=== PATIENT | male | born 1965 | race Caucasian/White ===

== ENCOUNTER 2017-01-02 22:39 | Emergency (ER) | payer OTHER ==
[~2017-01-02] VITALS: Ht 137.2 cm; Wt 60.0 kg
[~2017-01-02 22:39] MED LIST: FLUD.1 PO; HYDR20TA PO
[2017-01-02] MEDS ORDERED: HYDR20TA PO (23:02)
[2017-01-02] MEDS ORDERED: FLUD.1 PO (23:02)
[2017-01-02 23:03] VITALS: BP 134/93; PULSE 90; RESP 18; TEMP 98.9; O2SAT 95
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
--- NOTE | 2017-01-02 23:27 | RADRPT ---
EXAM DATE/TIME: 01/02/2017 23:06 [facility] COMPARISON: No previous studies available for comparison. INDICATIONS : Hand pain, no known injury. MEDICAL HISTORY : None. SURGICAL HISTORY : None. ENCOUNTER: Initial ACUITY: 1 day PAIN SCORE: 0/10 LOCATION: Right hand FINDINGS: Two view examination of the right hand demonstrates no dislocation or fracture. Dorsal soft tissue sw elling. The joint spaces are maintained. Bony mineralization is normal. CONCLUSION: Dorsal soft tissue swelling. Felipe Welsh Jr., MD on January 02, 2017 at 23:25 Board Certified Radiologist. This report was verified electronically.
[2017-01-02] MEDS ORDERED: LORazepam 2 MG/ML VIAL IM ONE (23:30)
[2017-01-02 23:47] LABS: BICARBONATE 25.6 MEQ/L (21.0-32.0); POTASSIUM 3.7 MEQ/L (3.5-5.1)
[2017-01-03] MEDS ORDERED: HALOPERIDOL LACTATE 5 MG/ML AMP IM ONE (00:30)
[2017-01-03] MEDS ORDERED: LORazepam 2 MG/ML VIAL IM ONE (02:15)
== END 2017-01-03 06:01 | disposition home or self-care (01) ==
LOC: NEPD 22:39
DX: F10.129 Alcohol abuse with intoxication, unspecified (principal); E27.1 Primary adrenocortical insufficiency; F20.9 Schizophrenia, unspecified; F41.9 Anxiety disorder, unspecified; I95.9 Hypotension, unspecified; I10 Essential (primary) hypertension; F17.210 Nicotine dependence, cigarettes, uncomplicated; F12.90 Cannabis use, unspecified, uncomplicated; Y90.7 Blood alcohol level of 200-239 mg/100 ml; Z88.0 Allergy status to penicillin
CPT/HCPCS: 73120; 80048; 80307; 96372; 99285; J1630; J2060

== ENCOUNTER 2017-01-10 08:43 | Emergency (ER) | payer SELFPAY ==
[~2017-01-10] VITALS: Ht 167.6 cm; Wt 63.0 kg
[2017-01-10 08:48] VITALS: BP 139/77; PULSE 68; RESP 16; TEMP 98.4; O2SAT 100
[2017-01-10] MEDS ORDERED: TRAM50TA PO (09:28)
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
== END 2017-01-10 09:44 | disposition home or self-care (01) ==
LOC: PHED 08:43
DX: S20.212A Contusion of left front wall of thorax, initial encounter (principal); R01.1 Cardiac murmur, unspecified; F17.210 Nicotine dependence, cigarettes, uncomplicated; W22.09XA Striking against other stationary object, initial encounter; Y93.55 Activity, bike riding; Z88.0 Allergy status to penicillin
CPT/HCPCS: 99283

== ENCOUNTER 2017-12-06 08:05 | Emergency (ER) | payer SELFPAY ==
[~2017-12-06] VITALS: Ht 167.6 cm; Wt 59.0 kg
[~2017-12-06 08:05] MED LIST changes: -FLUD.1 PO; -HYDR20TA PO; +TRAM50TA PO
[2017-12-06 08:08] VITALS: BP 150/100; PULSE 76; RESP 18; TEMP 97.9; O2SAT 100
[2017-12-06 09:41] VITALS: BP 163/93; PULSE 82; RESP 18; O2SAT 100
--- NOTE | 2017-12-06 09:45 | RADRPT ---
EXAM DATE/TIME: 12/06/2017 08:24 [facility] COMPARISON: No previous studies available for comparison. INDICATIONS : Left rib pain post fall today. MEDICAL HISTORY : Hypertension. Atchison's disease. heart murmur. SURGICAL HISTORY : Splenectomy. Right lower rib removed due to dysfunctional kidney. ENCOUNTER: Initial ACUITY: 1 day PAIN SCORE: 10/10 LOCATION: Left lateral ribs FINDINGS: Multiple views of the left ribs were performed. There is no evidence of displaced fracture. There is an old healed fracture involving the lateral aspect of the left ninth rib. No destructive lesions or areas of periosteal thickening are seen. Expiratory view of the chest is negative for pneumothorax. The mediastinal structures are midline. Mild compression deformity is noted involving T11. CONCLUSION: 1. No acute rib fracture or dislocation. 2. Mild compression deformity involving T11 of indeterminate age. Jesus Franks MD on December 06, 2017 at 9:40 Board Certified Radiologist. This report was verified electronically.
--- NOTE | 2017-12-06 09:53 | RADRPT ---
EXAM DATE/TIME: 12/06/2017 08:24 [facility] COMPARISON: No previous studies available for comparison. INDICATIONS : Right femur/groin pain post fall. MEDICAL HISTORY : Hypertension. Heart murmur. SURGICAL HISTORY : Splenectomy. Right lower rib removed due to dysfunctional kidney. ENCOUNTER: Initial ACUITY: 1 day PAIN SCORE: 10/10 LOCATION: Right femur FINDINGS: Two view examination of the right femur demonstrates no evidence of fracture or dislocation. Bony mi neralization is normal. The soft tissue structures are intact. CONCLUSION: No acute disease. Jesus Franks MD on December 06, 2017 at 9:43 Board Certified Radiologist. This report was verified electronically.
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
[2017-12-06] MEDS ORDERED: HYDR-3288 PO (10:10)
[2017-12-06] MEDS ORDERED: ACETAMINOPHEN/HYDROcodone 325 MG/5 MG TAB PO ONE (10:15)
== END 2017-12-06 10:45 | disposition home or self-care (01) ==
LOC: PHED 08:05
DX: T14.8XXA Other injury of unspecified body region, initial encounter (principal); R07.9 Chest pain, unspecified; M79.604 Pain in right leg; S80.812A Abrasion, left lower leg, initial encounter; S80.811A Abrasion, right lower leg, initial encounter; W18.39XA Other fall on same level, initial encounter; E27.1 Primary adrenocortical insufficiency; I10 Essential (primary) hypertension; F17.200 Nicotine dependence, unspecified, uncomplicated
CPT/HCPCS: 71101; 73552; 99284; E0113

== ENCOUNTER 2018-01-31 07:54 | Emergency (ER) | payer SELFPAY ==
[~2018-01-31] VITALS: Ht 170.2 cm; Wt 56.0 kg
[~2018-01-31 07:54] MED LIST changes: +HYDR-3288 PO; -TRAM50TA PO
[2018-01-31 07:57] VITALS: BP 129/82; PULSE 81; RESP 16; TEMP 98.4; O2SAT 98
[2018-01-31] MEDS ORDERED: HYDR10TA65 PO (08:11)
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
--- NOTE | 2018-01-31 09:01 | RADRPT ---
EXAM DATE: 01/31/2018 8:37 AM EDT AGE/SEX: 52 years / Male INDICATIONS: Patient states he has a splinter of wood on the plantar surface of foot near the distal end of the 5th metatarsal x 3 days & now seems to be infected. CLINICAL DATA: This is the patient's initial encounter. Patient reports that signs and symptoms have been present for 3 days and indicates a pain score of 6/10. MEDICAL/SURGICAL HISTORY: . Hypotension. Heart murmur. Bladen's disease. Smoker. Splenectomy. ORIF right leg. Renal, rib, skull surgery. COMPARISON: No prior exams available for comparison. FINDINGS: Three views of the left foot demonstrate no fracture or dislocation. Mineralization is within normal limits. The Lisfranc joint appears intact. No radiopaque foreign body is identified. There is mild so ft tissue swelling of the fifth digit and adjacent to the fifth metatarsophalangeal joint. CONCLUSION: Soft tissue swelling of the third digit and adjacent to the fifth MTP joint. No fracture is identifie d and no radiopaque foreign body is seen. Please note that wood foreign bodies are often not visualiz ed with x-ray imaging but can sometimes be seen with ultrasound imaging. Electronically signed by: Jay Barcenas MD 01/31/2018 9:00 AM EDT
[2018-01-31] MEDS ORDERED: LIDOCAINE HCL 1% PF 30 ML VIAL INFIL ONE (09:30)
--- NOTE | 2018-01-31 09:45 | PD ---
Physical Exam Date Seen by Provider: Jan 31, 2018 Time Seen by Provider: 09:43 Data Data Last Documented VS Vital Signs Date Time Temp Pulse Resp B/P (MAP) Pulse Ox O2 Delivery O2 Flow Rate FiO2 01/31/18 07:57 98.4 81 16 129/82 (98) 98 Orders Orders Foot, Complete ([id number]) (01/31/18 08:15) Lidocaine Pf 1% Inj (Xylocaine-Mpf 1% In (01/31/18 09:30) MDM Medical Record Reviewed: Yes Supervised Visit with PAGE: Yes Narrative Course I was asked by Dr. Jones to perform an incision and drainage and foreign body removal on this patient. Please see his note for further details. Procedures Procedure Narrative Incision and drainage and foreign body removal: The area was prepped and was draped. A subcutaneous wheal of 1% lidocaine with a total number 3 mL was used to anesthetize the area properly. A number 11 scalpel was used to make a 0.5 cm incision across the area of the abscess and foreign body. Tweezers were used to remove a 2 mm long piece of wood. The abscess was drained and irrigated with normal saline. Sterile dressing applied. Kathy Dickerson Jan 31, 2018 09:45
[2018-01-31] MEDS ORDERED: CEPH-460 PO (09:49)
== END 2018-01-31 10:04 | disposition home or self-care (01) ==
LOC: PHED 07:54
DX: S91.342A Puncture wound with foreign body, left foot, initial encounter (principal); W45.8XXA Other foreign body or object entering through skin, initial encounter; W22.8XXA Striking against or struck by other objects, initial encounter; E27.1 Primary adrenocortical insufficiency; F41.9 Anxiety disorder, unspecified; I10 Essential (primary) hypertension; F17.200 Nicotine dependence, unspecified, uncomplicated; F12.90 Cannabis use, unspecified, uncomplicated
CPT/HCPCS: 28190; 73630

== ENCOUNTER 2018-02-03 10:09 | Observation (INO) | payer SELFPAY ==
[~2018-02-03] VITALS: Ht 170.2 cm; Wt 50.9 kg
[2018-02-03] VITALS (8 sets, daily range): BP systolic 153–175; BP diastolic 93–106; PULSE 18–82; RESP 16–20; TEMP 97–99.5; O2SAT 97–100
[~2018-02-03 10:09] MED LIST changes: +CEPH-460 PO; -HYDR-3288 PO; +HYDR10TA65 PO
[2018-02-03] MEDS ORDERED: SODIUM CHLORIDE 0.9% FLUSH 10 ML FLUSH IV FLUSH PRN ×3 (10:30→18:45)
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
[2018-02-03 10:49] LABS: AUTOMATED NEUTROPHIL # 3.4 TH/MM3 (1.8-7.7); BASOPHIL # 0.1 TH/MM3 (0-0.2); EOSINOPHIL # 0.3 TH/MM3 (0-0.4); EOSINOPHIL % 3.9 % (0.0-4.0); HEMATOCRIT 48.4 % (39.0-51.0); HEMOGLOBIN 16.9 GM/DL (13.0-17.0); LYMPH % 32.6 % (9.0-44.0); LYMPHOCYTE # 2.1 TH/MM3 (1.0-4.8); MEAN CELL VOLUME 91.1 FL (80.0-100.0); MEAN CORPUSCULAR HEMOGLOBIN 31.9 PG (27.0-34.0); MEAN PLATELET VOLUME 8.1 FL (7.0-11.0); MONO % 9.5 % (0.0-8.0); MONOCYTE # 0.6 TH/MM3 (0-0.9); PLATELET COUNT 237 TH/MM3 (150-450); RED BLOOD COUNT 5.31 MIL/MM3 (4.50-5.90); RED CELL DISTRIBUTION WIDTH 12.6 % (11.6-17.2); WHITE BLOOD COUNT 6.5 TH/MM3 (4.0-11.0)
[2018-02-03 11:00] LABS: CHLORIDE 96 MEQ/L (98-107); SODIUM (NA) 134 MEQ/L (136-145)
[2018-02-03 11:04] LABS: ALBUMIN 3.9 GM/DL (3.4-5.0); BICARBONATE 26.6 MEQ/L (21.0-32.0); CALCIUM 8.4 MG/DL (8.5-10.1); GLUCOSE,RANDOM 68 MG/DL (74-106)
[2018-02-03 11:05] LABS: BLOOD UREA NITROGEN 22 MG/DL (7-18)
[2018-02-03 11:07] LABS: ALT (GPT) 30 U/L (12-78); AST (GOT) 28 U/L (15-37); CREATININE 0.85 MG/DL (0.60-1.30); GLOMERULAR FILTRATION RATE 95 ML/MIN (>89)
[2018-02-03 11:09] LABS: TOTAL BILIRUBIN ADULT 1.4 MG/DL (0.2-1.0); TOTAL PROTEIN 7.5 GM/DL (6.4-8.2)
[2018-02-03 11:10] LABS: ALKALINE PHOSPHATASE 107 U/L (45-117)
[2018-02-03] MEDS ORDERED: GADODIAMIDE PF 287 MG/ML 10 ML VIAL (for RAD MRI) IV PUSH ONE (11:10)
[2018-02-03 11:11] LABS: INTERNATIONAL NORMALIZED RATIO 1.1 RATIO; PROTHROMBIN TIME - PATIENT 11.6 SEC (9.8-11.6)
[2018-02-03 11:12] LABS: TROPONIN I LESS THAN 0.02 NG/ML (0.02-0.05)
[2018-02-03] MEDS ORDERED: PROCHLORPERAZINE INJ 10 MG/2 ML VIAL IV PUSH ONE (11:15)
--- NOTE | 2018-02-03 11:20 | RADRPT ---
EXAM DATE: 02/03/2018 11:04 AM EDT AGE/SEX: 52 years / Male INDICATIONS: Syncope. Weakness. Cough. CLINICAL DATA: This is the patient's initial encounter. Patient reports that signs and symptoms have been present for 1 day and indicates a pain score of 4/10. MEDICAL/SURGICAL HISTORY: None. None. COMPARISON: [facility], CHEST SINGLE AP, 05/04/2015. . FINDINGS: A single AP view of the chest demonstrates the lungs to be symmetrically aerated without evidence of mass, infiltrate or effusion. The cardiomediastinal contours are unremarkable. Osseous structures a re intact. CONCLUSION: Negative examination. Electronically signed by: Kenyon Gilliland MD 02/03/2018 11:19 AM EDT
--- NOTE | 2018-02-03 11:39 | RADRPT ---
EXAM DATE: 02/03/2018 11:28 AM EDT AGE/SEX: 52 years / Male INDICATIONS: Bilateral temporal headache with blurred vision, sweating, and chills. Altered mental s tatus. Possible drug ingestion. CLINICAL DATA: This is the patient's initial encounter. Patient reports that signs and symptoms have been present for 1 day and indicates a pain score of 5/10. MEDICAL/SURGICAL HISTORY: . Hypotension. None. RADIATION DOSE: 55.13 CTDI (mGy) COMPARISON: No prior exams available for comparison. TECHNIQUE: CT of the head without contrast. Using automated exposure control and adjustment of the mA and/or kV according to patient size, radiation dose was kept as low as reasonably achievable to ob tain optimal diagnostic quality images. FINDINGS: Cerebrum: The ventricles are normal for age. No evidence of midline shift, mass lesion, hemorrhage or acute infarction. No extraaxial fluid collections are seen. Posterior Fossa: The cerebellum and brainstem are intact. The 4th ventricle is midline. The cerebe llopontine angle is unremarkable. Extracranial: The visualized portion of the orbits is intact. Skull: The calvaria is intact. No evidence of skull fracture. CONCLUSION: 1. Negative CT Head non contrast. Electronically signed by: Kenyon Gilliland MD 02/03/2018 11:37 AM EDT
[2018-02-03 11:45] LABS: BLOOD, URINE NEG (NEG); GLUCOSE,URINE NEG (NEG); KETONE, URINE 80 OR GREATER mg/dL (NEG); NITRITE,URINE NEG (NEG); URINE COLOR YELLOW (YELLW/STRAW); URINE LEUKOCYTE ESTERASE NEG (NEG)
[2018-02-03 11:52] LABS: BILIRUBIN, URINE NEG (NEG)
[2018-02-03 12:00] LABS: RBC, URINE 0-3 /hpf (0-3); SQUAMOUS EPITHELIAL CELL URINE 0-5 /hpf (0-5)
[2018-02-03] MEDS ORDERED: POTASSIUM CHLORIDE 10 MEQ CONTROLLED RELEASE TAB PO ONE (12:00)
[2018-02-03 12:13] LABS: MAGNESIUM 2.1 MG/DL (1.5-2.5)
[2018-02-03] MEDS ORDERED: SODIUM CHLOR 0.9% 1000 ML INJ 1,000 ML IV ONE (12:30)
[2018-02-03] MEDS ORDERED: SENNOSIDES 8.6 MG TAB PO PRN (12:45)
[2018-02-03] MEDS ORDERED: BISACODYL 10 MG SUPP RECTAL PRN (12:45)
[2018-02-03] MEDS ORDERED: DEXTROSE 50% IN WATER 50 ML VIAL(D50) IV PUSH PRN (12:45)
[2018-02-03] MEDS ORDERED: NALOXONE HCL 0.4 MG/ML AMP IV PUSH PRN (12:45)
[2018-02-03] MEDS ORDERED: METOCLOPRAMIDE HCL 10 MG/2 ML VIAL IV PUSH PRN (12:45)
[2018-02-03] MEDS ORDERED: LACTULOSE SYRUP 20 GM/30 ML CUP PO PRN (12:45)
[2018-02-03] MEDS ORDERED: MAGNESIUM HYDROXIDE SUSP 30 ML CUP PO PRN (12:45)
[2018-02-03] MEDS ORDERED: GLUCAGON 1 MG/ML VIAL OTHER PRN (12:45)
[2018-02-03] MEDS: HYDROCORTISONE 10 MG TAB PO SCH (14:00)
[2018-02-03] MEDS ORDERED: PILL SPLITTER OTHER PRN (14:00)
--- NOTE | 2018-02-03 14:26 | EKG ---
Date Performed: 02/03/2018 Time Performed: 10:32:41 PTAGE: 52 years EKG: SINUS BRADYCARDIA POSSIBLE LEFT VENTRICULAR HYPERTROPHY ABNORMAL ECG PREVIOUS TRACING : 11/26/2014 05.57 Compared with previous EKG sinus bradycardia is new DOCTOR: César Fitzpatrick Interpretating Date/Time 02/03/2018 14:24:27
--- NOTE | 2018-02-03 14:50 | HHI.HP ---
HPI Service [facility] Primary Care Physician Yandel Asencio DO Admission Diagnosis altered mental status, hypoglycemia Diagnoses: (1) Encephalopathy Diagnosis: Principal (2) Hypoglycemia Diagnosis: Principal (3) Polysubstance abuse Diagnosis: Principal Chief Complaint: Mother brought patient here to get evaluated Travel History International Travel<30 Days: No Contact w/Intl Traveler <30 Da: No Traveled to Known Affected Are: No History of Present Illness Written by Camden Zavaleta, acting as scribe for Dr. Wing on 02/03/18 at 14: 49. 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 Patient laying in bed and most history was taken from mother at bedside. Patient only would indicate "I do not know what happened". According the mother patient was living at a friend's house for approximately 2 months where he has easy access to drugs apparently the roommate is on methadone. Apparently the friend called the patient's mother and had her come pick him up because he was not acting right. This is happened before because of heroin overdose therefore mom got worried and brought her in for eval. Patient does have a history of Pete's in which he is supposed to be on medications. Patient stated "probably not taking medication". There was evidence of diaphoresis, weakness, lethargy, blurred vision, headache 8/10 on a pain scale. No signs of any fever, chills, cough, nausea, vomiting, chest pain. Patient indicates last time he used any cocaine was yesterday. Upon evaluation emergency department course the patient had again a positive drug screen with cocaine and cannabinoids. He had elevated blood pressure and mildly low glucose level. It was recommended by ER physician the patient be observed in the hospital for further evaluation and management. Review of Systems Constitutional: COMPLAINS OF: Diaphoretic episodes, Fatigue Eyes: COMPLAINS OF: Blurred vision Neurologic: COMPLAINS OF: Headache Except as stated in HPI: all other systems reviewed are Neg Past Family Social History Past Medical History Polysubstance abuse [place]'s Past Surgical History Splenectomy Right leg fracture with repair Tonsillectomy Reported Medications Reported Meds & Active Scripts Active Keflex (Cephalexin) 500 Mg Capsule 500 Mg PO QID Reported Hydrocortisone 10 Mg Tab 15 Mg PO DAILY Take with food to decrease GI upset Allergies: Coded Allergies: penicillin G (Unverified Allergy, Intermediate, UNKNOWN, 02/03/18) pt states does not have a allergy to this medication. cris Treadwell 01/31/18 Family History Family history was reviewed and significant for mother still alive with hypertension Social History Patient smokes a pack of cigarettes a day, occasional alcohol, polysubstance abuse with history of heroin use, cocaine use, marijuana use Physical Exam Vital Signs Vital Signs Date Time Temp Pulse Resp B/P (MAP) Pulse Ox O2 Delivery O2 Flow Rate FiO2 02/03/18 14:37 97.0 18 18 175/105 (128) 100 02/03/18 14:28 02/03/18 13:37 54 16 175/93 (120) 100 Room Air 02/03/18 12:31 57 16 159/97 (117) 98 Room Air 02/03/18 10:43 52 173/97 (122) 02/03/18 10:30 97 02/03/18 10:20 82 16 97 02/03/18 10:12 97.8 82 16 160/106 (124) 97 Physical Exam GENERAL: laying in bed, covers up his chin. keeps eyes closed, very thin HEENT: Head is normocephalic. Facial features are symmetric. Eyes: Pupils equal , small and round reactive to light. Extraocular muscles are intact. Conjunctivae were clear. NECK: Supple without any masses. Trachea midline no deviation. No JVD CARDIAC: Regular rhythm, regular rate. S1/S2 are heard. No murmurs. LUNGS: Clear to auscultation bilaterally. No wheeze. No use of accessory muscles on inspiration or expiration. ABDOMEN: Soft, nontender. Nondistended. Bowel sounds heard in all 4 quadrants. Negative rebound, negative guarding EXTREMITIES: No edema, pulses are equal bilaterally. NEUROLOGY: Patient was just laying in bed, appear to be frustrated whenever he was asked questions and at times prefers not to answer. Cranial nerves II through XII grossly intact. moves all extremities. Laboratory Laboratory Tests Test 02/03/18 10:40 02/03/18 11:39 02/03/18 12:35 White Blood Count 6.5 Red Blood Count 5.31 Hemoglobin 16.9 Hematocrit 48.4 Mean Corpuscular Volume 91.1 Mean Corpuscular Hemoglobin 31.9 Mean Corpuscular Hemoglobin Concent 35.0 Red Cell Distribution Width 12.6 Platelet Count 237 Mean Platelet Volume 8.1 Neutrophils (%) (Auto) 52.0 Lymphocytes (%) (Auto) 32.6 Monocytes (%) (Auto) 9.5 Eosinophils (%) (Auto) 3.9 Basophils (%) (Auto) 2.0 Neutrophils # (Auto) 3.4 Lymphocytes # (Auto) 2.1 Monocytes # (Auto) 0.6 Eosinophils # (Auto) 0.3 Basophils # (Auto) 0.1 CBC Comment DIFF FINAL Differential Comment Prothrombin Time 11.6 Prothromb Time International Ratio 1.1 Activated Partial Thromboplast Time 28.3 Blood Urea Nitrogen 22 Creatinine 0.85 Random Glucose 68 Total Protein 7.5 Albumin 3.9 Calcium Level 8.4 Magnesium Level 2.1 Alkaline Phosphatase 107 Aspartate Amino Transf (AST/SGOT) 28 Alanine Aminotransferase (ALT/SGPT) 30 Total Bilirubin 1.4 Sodium Level 134 Potassium Level 3.2 Chloride Level 96 Carbon Dioxide Level 26.6 Anion Gap 11 Estimat Glomerular Filtration Rate 95 Total Creatine Kinase 75 Troponin I LESS THAN 0.02 Thyroid Stimulating Hormone 3rd Gen 0.359 Salicylates Level LESS THAN 1.7 Acetaminophen Level LESS THAN 2.0 Ethyl Alcohol Level LESS THAN 3 Urine Collection Type CLEAN CATCH Urine Color YELLOW Urine Turbidity CLEAR Urine pH 6.0 Urine Specific [place] GREATER/EQUAL 1.030 Urine Protein NEG Urine Glucose (UA) NEG Urine Ketones 80 OR GREATER Urine Occult Blood NEG Urine Nitrite NEG Urine Bilirubin NEG Urine Urobilinogen 1.0 Urine Leukocyte Esterase NEG Urine RBC 0-3 Urine Squamous Epithelial Cells 0-5 Microscopic Urinalysis Comment CULT NOT INDICATED Urine Opiates Screen NEG Urine Barbiturates Screen NEG Urine Amphetamines Screen NEG Urine Benzodiazepines Screen NEG Urine Cocaine Screen POS Urine Cannabinoids Screen POS Result Diagram: 02/03/18 1040 02/03/18 1040 Imaging Last Impressions Head CT 02/03/18 1026 Signed Impressions: CONCLUSION: 1. Negative CT Head non contrast. Chest X-Ray 02/03/18 1026 Signed Impressions: CONCLUSION: Negative examination. Caprini VTE Risk Assessment Caprini VTE Risk Assessment: No/Low Risk (score <= 1) Caprini Risk Assessment Model Point Value = 1 Point Value = 2 Point Value = 3 Point Value = 5 Age 41-60 Minor surgery BMI > 25 kg/m2 Swollen legs Varicose veins or History of unexplained or recurrent spontaneous Oral contraceptives or hormone replacement Sepsis (< 1 month) Serious lung disease, including pneumonia (< 1 month) Abnormal pulmonary function Acute myocardial infarction Congestive heart failure (< 1 month) History of inflammatory bowel disease Medical patient at bed rest Age 61-74 Arthroscopic surgery Major open surgery (> 45 min) Laparoscopic surgery (> 45 min) Malignancy Confined to bed (> 72 hours) Immobilizing plaster cast Central venous access Age >= 75 History of VTE Family history of VTE Factor V Leiden Prothrombin [id number] Lupus anticoagulant Anticardiolipin antibodies Elevated serum homocysteine Heparin-induced thrombocytopenia Other congenital or acquired thrombophilia Stroke (< 1 month) Elective arthroplasty Hip, pelvis, or leg fracture Acute spinal cord injury (< 1 month) Prophylaxis Regimen Total Risk Factor Score Risk Level Prophylaxis Regimen 0-1 Low Early ambulation 2 Moderate Order ONE of the following: *Sequential Compression Device (SCD) *Heparin 5000 units SQ BID 3-4 Higher Order ONE of the following medications: *Heparin 5000 units SQ TID *Enoxaparin/Lovenox 40 mg SQ daily (WT < 150 kg, CrCl > 30 mL/min) *Enoxaparin/Lovenox 30 mg SQ daily (WT < 150 kg, CrCl > 10-29 mL/min) *Enoxaparin/Lovenox 30 mg SQ BID (WT < 150 kg, CrCl > 30 mL/min) AND/OR *Sequential Compression Device (SCD) 5 or more Highest Order ONE of the following medications: *Heparin 5000 units SQ TID (Preferred with Epidurals) *Enoxaparin/Lovenox 40 mg SQ daily (WT < 150 kg, CrCl > 30 mL/min) *Enoxaparin/Lovenox 30 mg SQ daily (WT < 150 kg, CrCl > 10-29 mL/min) *Enoxaparin/Lovenox 30 mg SQ BID (WT < 150 kg, CrCl > 30 mL/min) AND *Sequential Compression Device (SCD) Assessment and Plan Assessment and Plan Encephalopathy, unknown whether metabolic versus toxic -Patient has history of polysubstance abuse with positive drug screen, history of heroin overdose, history of Pete's with medication noncompliant -CT scan of the brain was unremarkable thus far -Obtain MRI of the brain -Do further laboratory studies to include B12, folate, sed rate, RPR, cortisol level, TSH -Urine drug screen does indicate cocaine and marijuana -Patient symptoms could be withdrawal symptoms from opiates or some other drug he has taken at pt's friend's house though he doesn't tell me. salicylates and acetaminophen neg. EtOH low. Elevated blood pressure -Could be secondary to cocaine use -Clonidine as needed for blood pressure management per mother, pt not a drinker however, unsure at this time, cause of elevated BP' s. will place him on CIWA protocol, sz and fall precautions Hypoglycemia -Continue IV fluids -Monitor glucose level -hypoglycemia protocol initiated. -BS improving. Electrolyte abnormality with hyponatremia, hypokalemia -Continue monitoring place as needed [place]'s disease, medication noncompliance -Check cortisol level -Continue Florinef and hydrocortisone. hold florinef for now due to elevated BP' s but resume if BP's drop. DVT prevention -Sequential compression devices This note was transcribed by darrius Zavaleta. I, Dr. Nina Wing personally performed the history, physical exam, and medical decision making; and confirmed the accuracy of the information in the transcribed note. Authenticated by Dr. Nina Wing on 02/03/18 at 14:49. Code Status Full code Discussed Condition With ER physician and pt's mother and patient Camden Zavaleta Feb 03, 2018 14:49 Nina Wing MD Feb 03, 2018 18:27
[2018-02-03] MEDS ORDERED: cloNIDine HCL 0.1 MG TAB PO PRN (15:00)
[2018-02-03 18:44] LABS: BICARBONATE 25.4 MEQ/L (21.0-32.0); CALCIUM 8.7 MG/DL (8.5-10.1); CREATININE 0.74 MG/DL (0.60-1.30)
[2018-02-03] MEDS ORDERED: FLUMAZENIL 0.5 MG/5 ML VIAL IV PUSH PRN (18:45)
[2018-02-03] MEDS ORDERED: LORazepam 2 MG/ML VIAL IV PUSH PRN ×4 (18:45)
[2018-02-03] MEDS ORDERED: LORazepam 1 MG TAB PO PRN (18:45)
[2018-02-03] MEDS ORDERED: FOLIC ACID 1 MG TAB PO ONE (18:45)
[2018-02-03] MEDS ORDERED: LORazepam 2 MG TAB PO PRN (18:45)
[2018-02-03] MEDS: THIAMINE HCL 100 MG TAB PO SCH (19:28)
[2018-02-03] MEDS: MULTIVITAMINS/MINERALS THERAPEUTIC TAB PO SCH (19:28)
[2018-02-03] MEDS: DOCUSATE SODIUM 50 MG/SENNA 8.6 MG TAB PO SCH (21:00)
[2018-02-03] MEDS: SODIUM CHLORIDE 0.9% FLUSH 10 ML FLUSH IV FLUSH SCH ×2 (21:00)
[2018-02-03 22:10] LABS: FOLATE GREATER THAN 20.0 NG/ML (3.1-17.5)
[2018-02-04] VITALS: BP 124/85; PULSE 75; RESP 20; TEMP 99.4; O2SAT 97
[2018-02-04 04:00] VITALS: BP 119/85; PULSE 84; RESP 20; TEMP 98.6; O2SAT 98
[2018-02-04 06:40] LABS: CALCIUM 9.1 MG/DL (8.5-10.1)
[2018-02-04 06:41] LABS: BICARBONATE 27.5 MEQ/L (21.0-32.0)
[2018-02-04 06:44] LABS: CREATININE 0.78 MG/DL (0.60-1.30)
[2018-02-04] MEDS: MULTIVITAMINS/MINERALS THERAPEUTIC TAB PO SCH (08:06)
[2018-02-04] MEDS: THIAMINE HCL 100 MG TAB PO SCH (08:06)
[2018-02-04] MEDS: DOCUSATE SODIUM 50 MG/SENNA 8.6 MG TAB PO SCH (08:06)
[2018-02-04] MEDS: SODIUM CHLORIDE 0.9% FLUSH 10 ML FLUSH IV FLUSH SCH ×2 (08:07)
[2018-02-04 08:40] VITALS: BP 132/82; PULSE 75; RESP 16; TEMP 98.4; O2SAT 96
[2018-02-04] MEDS ORDERED: FOLIC ACID 1 MG TAB PO SCH (09:00)
[2018-02-04] MEDS: HYDROCORTISONE 10 MG TAB PO SCH (09:27)
[2018-02-04] MEDS ORDERED: INFLUENZA VIRUS VACCINE (QUADRIVALENT) 0.5 ML SYR IM ONE (10:00)
[2018-02-04] MEDS ORDERED: PNEUMOCOCCAL POLYVALENT INJ 25 MCG/0.5 ML SYR IM ONE (10:00)
[2018-02-04] MEDS ORDERED: LORazepam 2 MG/ML VIAL IV PUSH ONE (11:00)
--- NOTE | 2018-02-04 11:37 | RADRPT ---
EXAM DATE: 02/04/2018 11:23 AM EDT AGE/SEX: 52 years / Male INDICATIONS: . Encephalopathy. Cephalgia. CLINICAL DATA: This is the patient's initial encounter. Patient reports that signs and symptoms have been present for 2 days and indicates a pain score of 4/10. MEDICAL/SURGICAL HISTORY: . Ebony disease. . Orthopaedic from trauma. COMPARISON: No prior exams available for comparison. TECHNIQUE: Multiplanar, multisequence examination of the brain was performed without and with 10 ml O mniscan (gadodiamide) contrast as a single exam dose. FINDINGS: Cerebrum: The ventricles are normal for age. No evidence of midline shift, mass lesion, hemorrhage or acute infarction. No extraaxial fluid collections are seen. The pituitary gland and suprasellar cistern are normal in configuration. White Matter: Minimal periventricular white matter changes.. Posterior Fossa: The cerebellum and brainstem are intact. The 4th ventricle is midline. The cerebel lopontine angle is unremarkable. The cerebellar tonsils are normal in position. Prominent cisterna m agna Diffusion Imaging: No focal areas of restricted diffusion are seen. No evidence of acute infarction . Extracranial: The visualized portions of the orbits and paranasal sinuses are unremarkable. Post Contrast: No abnormal areas of parenchymal or dural enhancement. No evidence of blood-brain ba rrier breakdown. CONCLUSION: 1. Minimal periventricular white matter changes, negative for acute process 2. Do not see evidence for an acute ischemic event. There is no abnormal contrast enhancement. Electronically signed by: Nestor Mcneil MD 02/04/2018 11:35 AM EDT
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
[2018-02-04] MEDS ORDERED: FLUD.1 PO (13:43)
--- NOTE | 2018-02-04 13:56 | HHI.PR ---
Subjective Remarks Pt states he feels better. complains on a headache at times but otherwise tolerating a diet and moving around. denies any nausea or vomiting. He is a lot more alert this morning. even joking around. After me asking on multiple occasions what had he taken the day before, he finally admits that he has been using his friend's methadone. He states that he at times he skips days of taking it. Pt is not the best historian and I'm not sure if he is telling me the truth. He states that he will not go back to [facility] and wants to go to the methadone clinic so he can keep getting it so he doesn't go into withdrawals. HE knows he has to quit doing this but "it is hard to do, you couldn't understand why I must take narcotics". Objective Vitals Vital Signs Date Time Temp Pulse Resp B/P (MAP) Pulse Ox O2 Delivery O2 Flow Rate FiO2 02/04/18 08:40 98.4 75 16 132/82 (99) 96 02/04/18 04:00 98.6 84 20 119/85 (96) 98 02/04/18 00:00 99.4 75 20 124/85 (98) 97 02/03/18 21:00 55 02/03/18 20:00 99.5 73 20 153/101 (118) 99 02/03/18 14:37 97.0 18 18 175/105 (128) 100 02/03/18 14:28 I/O 02/03/18 02/03/18 02/03/18 02/04/18 02/04/18 02/04/18 07:00 15:00 23:00 07:00 15:00 23:00 Intake Total 118 ml 730 ml 480 ml Balance 118 ml 730 ml 480 ml Intake Oral 118 ml 730 ml 480 ml # Voids 0 3 # Bowel Movements 0 0 Result Diagram: 02/03/18 1040 02/04/18 0550 Imaging Last Impressions Brain MRI 02/04/18 0000 Signed Impressions: CONCLUSION: 1. Minimal periventricular white matter changes, negative for acute process 2. Do not see evidence for an acute ischemic event. There is no abnormal contr ast enhancement. Head CT 02/03/18 1026 Signed Impressions: CONCLUSION: 1. Negative CT Head non contrast. Chest X-Ray 02/03/18 1026 Signed Impressions: CONCLUSION: Negative examination. Objective Remarks GENERAL: sitting up on bed, awake and alert. poor dentition CARDIAC: Regular rhythm, regular rate. No murmurs. LUNGS: Clear to auscultation bilaterally. No wheeze. ABDOMEN: Soft, nontender. Nondistended. EXTREMITIES: No edema, moves ext A/P Problem List: (1) Encephalopathy ICD Code: G93.40 - Encephalopathy, unspecified (2) Hypoglycemia ICD Code: E16.2 - Hypoglycemia, unspecified (3) Polysubstance abuse ICD Code: F19.10 - Other psychoactive substance abuse, uncomplicated Assessment and Plan Encephalopathy, unknown whether metabolic versus toxic -Patient has history of polysubstance abuse with positive drug screen, history of heroin overdose, history of Pete's with medication noncompliant -CT scan of the brain was unremarkable thus far. MRI brain also unremarkable. ESR 1, B12 551, folate >20.0, RPR non reactive, cortisol level low, TSH wnl -Urine drug screen does indicate cocaine and marijuana. Pt admitted today that he has been taking his friend/roommate's methadone on and off. -Patient symptoms could be withdrawal symptoms from opiates or some other drug he has taken that he is not disclosing. salicylates and acetaminophen neg. EtOH low. at this time, pt is clinically stable. labs reviewed and stable. vitals back to normal. Imaging studies unremarkable. He is alert and oriented and able to answer questions. Pt has been counseled extensively to stay away from drugs and seek counseling. he refuses to go to [facility] and prefers to go to the methadone clinic. I advised him to stay away from narcotics and drugs. Pt then tells me that he will but later tells me that "you don't know why I need narcotics and how hard it is to be off them". Elevated blood pressure -most likely from withdrawals from drugs/narcotics. Now back to normal. ok to resume florinef. Hypoglycemia resolved. Pt tolerating a diet. Nor[place]'s disease, medication noncompliance Continue Florinef and hydrocortisone. Discharge Planning d/c home today f/u w PCP within 1 week regular diet condition stable activity ad adeline counseled against doing drugs and taking other people's narcotics Nina Wing MD Feb 04, 2018 13:56
[2018-02-04 14:09] VITALS: BP 111/78; PULSE 92; RESP 14; TEMP 99; O2SAT 98
== END 2018-02-04 14:15 | disposition home or self-care (01) ==
LOC: PHED 10:09 → PHEDA 12:47 → PH3A 14:20
PROVIDERS: ADMIT Hospitalist; ATTEND Hospitalist
DX: G93.40 Encephalopathy, unspecified (principal); F19.10 Other psychoactive substance abuse, uncomplicated; E16.2 Hypoglycemia, unspecified; E87.1 Hypo-osmolality and hyponatremia; E87.6 Hypokalemia; E27.1 Primary adrenocortical insufficiency; R00.1 Bradycardia, unspecified; R94.31 Abnormal electrocardiogram [ECG] [EKG]; I10 Essential (primary) hypertension; F41.9 Anxiety disorder, unspecified; F17.210 Nicotine dependence, cigarettes, uncomplicated; Z91.14 Patient's other noncompliance with medication regimen
CPT/HCPCS: 70450; 70553; 71045; 80048; 80053; 80307; 81001; 82533; 82550; 82607; 82746; 82948; 83735; 84443; 84484; 85025; 85610; 85652; 85730; 86592; 93005; 96374; 99285; A9579; G0378; J0780

== ENCOUNTER 2018-06-17 19:03 | Observation (INO) ==
[2018-06-17 19:39] LABS: Baso # (Auto) 0.3 th/mm3 (0.0-0.2); Baso % (Auto) 2.6 % (0.0-2.0); Eos # (Auto) 0.4 th/mm3 (0.0-0.4); Lymph # (Auto) 3.2 th/mm3 (1.0-4.8); Lymph % (Auto) 32.2 % (9.0-44.0); Mean Corpuscular HGB Conc 34.8 % (32.0-36.0); Mean Corpuscular Hemoglobin 31.5 pg (27.0-34.0); Mean Corpuscular Volume 90.5 fL (80.0-100.0); Mean Platelet Volume 7.8 fL (7.0-11.0); Mono # (Auto) 0.8 th/mm3 (0.0-0.9); Mono % (Auto) 7.6 % (0.0-8.0); Neut # (Auto) 5.3 th/mm3 (1.8-7.7); Neut % (Auto) 53.6 % (16.0-70.0); Platelet Count 283 th/mm3 (150-450); Red Blood Count 5.08 mil/mm3 (4.50-5.90); Red Cell Distribution Width 12.9 % (11.6-17.2)
--- NOTE | 2018-06-17 19:45 | XR ---
EXAM DATE: 06/17/2018 7:22 PM EDT AGE/SEX: 52 years / Male INDICATIONS: Possible overdose. CLINICAL DATA: This is the patient's initial encounter. Patient reports that signs and symptoms have been present for 1 day and indicates a pain score of Nonresponsive. MEDICAL/SURGICAL HISTORY: Non-responsive. Non-responsive. COMPARISON: [facility], RIBS LEFT MIN 3V W EXP CHEST, 04/22/2018. . FINDINGS: A single AP view of the chest demonstrates the lungs to be symmetrically aerated without evidence of mass, infiltrate or effusion. The cardiomediastinal contours are unremarkable. Osseous structures a re intact. CONCLUSION: No acute cardiopulmonary process Electronically signed by: Jass Villarreal MD 06/17/2018 7:44 PM EDT
[2018-06-17 19:46] LABS: Chloride 98 meq/L (98-107); Potassium 3.2 meq/L (3.5-5.1); Sodium 136 meq/L (136-145)
[2018-06-17 19:50] LABS: Albumin 4.1 g/dL (3.4-5.0); Anion Gap 10 meq/L (5-15); Blood Urea Nitrogen 19 mg/dL (7-18); Calcium 8.4 mg/dL (8.5-10.1); Carbon Dioxide 27.7 meq/L (21.0-32.0); Glucose,Random 56 mg/dL (74-106); Magnesium 2.5 mg/dL (1.5-2.5)
[2018-06-17 19:52] LABS: Activated Partial Thrombo Time 26.3 sec (24.3-30.1); Prothrombin Time 10.3 sec (9.8-11.6)
[2018-06-17 19:53] LABS: Alanine Aminotransferase 34 U/L (12-78); Aspartate Aminotransferase 37 U/L (15-37); Glomerular Filtration Rate Greater Than 89 mL/min (>89)
[2018-06-17 19:55] LABS: Total Protein 7.3 g/dL (6.4-8.2)
[2018-06-17 19:56] LABS: Alkaline Phosphatase 104 U/L (45-117); Creatine Kinase 182 U/L (39-308)
[2018-06-17 20:00] LABS: Bilirubin,Urine Negative (Negative); Clarity,Urine Clear (Clear); Color,Urine Yellow (Yellw/Straw); Glucose,Urine (UA) Negative (Negative); Leukocyte Esterase,Urine Negative (Negative); Nitrite,Urine Negative (Negative); Urobilinogen,Urine 0.2 mg/dL (Less than 2)
[2018-06-17 20:05] LABS: Amorphous Sediment,Urine Few /hpf; Bacteria,Urine Rare /hpf; Mucus,Urine Few /lpf (Occasional); RBC,Urine 0-3 /hpf (0-3)
[2018-06-17 20:09] LABS: Barbiturate Screen,Urine Neg (Neg); Cannabinoid Screen,Urine Pos (Neg); Cocaine Screen,Urine Pos (Neg)
[2018-06-17 20:10] LABS: Amphetamine Screen,Urine Pos (Neg)
[2018-06-17 20:12] LABS: Opiate Screen,Urine Neg (Neg)
--- NOTE | 2018-06-17 20:23 | CT ---
EXAM DATE: 06/17/2018 7:48 PM EDT AGE/SEX: 52 years / Male INDICATIONS: Altered mental status. CLINICAL DATA: This is the patient's initial encounter. Patient reports that signs and symptoms have been present for 1 day and indicates a pain score of Nonresponsive. MEDICAL/SURGICAL HISTORY: Non-responsive. Non-responsive. RADIATION DOSE: 56.90 CTDI (mGy) COMPARISON: [facility], CT BRAIN W/O CONTRAST, 02/03/2018. . TECHNIQUE: CT of the head without contrast. Using automated exposure control and adjustment of the mA and/or kV according to patient size, radiation dose was kept as low as reasonably achievable to ob tain optimal diagnostic quality images. DICOM format image data is available electronically for revi ew and comparison. FINDINGS: Cerebrum: Stable focal encephalomalacia in the inferior medial left frontal low convexities. Mild di ffuse cerebral atrophy. The ventricles are normal for degree of atrophy. No evidence of midline shift , mass lesion, hemorrhage or acute infarction. No extraaxial fluid collections are seen. Posterior Fossa: The cerebellum and brainstem are intact. The 4th ventricle is midline. The cerebe llopontine angle is unremarkable. Extracranial: The visualized portion of the orbits is intact. Skull: The calvaria is intact. No evidence of skull fracture. CONCLUSION: 1. No acute intracranial abnormality.. Electronically signed by: Andrea Shore MD 06/17/2018 8:22 PM EDT
[2018-06-17] MEDS ORDERED: Hydrocortisone Sod Succinate 100 MG Vial IV.PUSH ONE (23:35)
--- NOTE | 2018-06-17 23:39 | ED ---
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 She says he was staying with a friend, but came to her house today. She knows he uses multiple drugs, she does not know which ones. She is concerned that he is not been taking his medications for the Tunica's disease. She says that he was vomiting today and was hard to wake up, so she brought him in. Patient is unable to provide any history. Related Data Home Medications Medication Instructions Recorded Confirmed hydrocortisone 1 applic TOPICAL BID 03/21/18 04/22/18 fludrocortisone 06/17/18 Allergies Allergy/AdvReac Type Severity Reaction Status Date / Time penicillin G Allergy Unknown UNKNOWN Verified 06/17/18 20:08 Review of Systems ROS Unobtainable ROS Unobtainable: unobtainable due to mental status [facility] Medical History Medical History Tunica disease (Acute) Social History Social History Substance History: Active Abuse Second Hand Smoke Exposure: No Smoking Status: Current every day smoker Tobacco Type: Cigarettes How Often Do You Have a Drink Containing Alcohol: 2 to 4 times a month Recent Travel in [facility] within the Last 8 Weeks: No Recent Out of Country Travel within the Last 8 Weeks: No Immunization History Tetanus Immunization: Unsure Exam Narrative Exam Narrative: GENERAL: Patient unconscious, does react to painful stimuli. SKIN: Focused skin assessment warm/dry. No wounds or signs of infection. HEAD: Atraumatic. Normocephalic. EYES: Pupils equal and round and reactive. No scleral icterus. Extraocular movements intact. ENT: Mucous membranes pink and moist. NECK: Trachea midline. No JVD. CARDIOVASCULAR: Regular rate and rhythm. No murmur appreciated. RESPIRATORY: No accessory muscle use. Clear to auscultation. Breath sounds equal bilaterally. GASTROINTESTINAL: Abdomen soft, non-tender, nondistended. MUSCULOSKELETAL: No obvious deformities. No clubbing. No cyanosis. No edema. NEUROLOGICAL: Unconscious, unresponsive to painful stimuli. No obvious cranial nerve deficits. Moves all of his extremities. Course Initial Documented Vital Signs Temperature 95 F L 06/17/18 19:30 Pulse Rate 71 06/17/18 19:30 Respiratory Rate 8 L 06/17/18 19:30 Blood Pressure 161/99 H 06/17/18 19:30 Pulse Oximetry 92 L 06/17/18 19:30 Last Documented Vital Signs Temperature 97.7 F 06/17/18 21:26 Pulse Rate 60 06/17/18 22:12 Respiratory Rate 18 06/17/18 22:12 Blood Pressure 171/99 H 06/17/18 22:12 Pulse Oximetry 99 06/17/18 22:12 Medical Decision Making MDM Narrative Medical decision making narrative: Patient is a 52-year-old male brought in by mom due to concerns when she found him unconscious. Patient is not providing any history. IV established, labs sent. Labs show a glucose of 56. He was given dextrose. CT head performed shows no acute abnormalities. Drug screen is positive for multiple substances. Cortisol level came back at less than 0.05. Patient given a dose of hydrocortisone. He will be admitted for management of Pete's crisis and altered mental status with drug abuse. Medical Screen Exam Complete: Yes Emergency Medical Condition: Yes Differential Diagnosis Differential Diagnosis: Tunica's crisis versus intoxication versus dehydration Medical Records Medical records reviewed: Yes I reviewed the patient's medical records. Lab Data Lab results reviewed: Yes I reviewed the patient's lab results. Result diagrams: 06/17/18 19:30 06/17/18 19:30 Lab Results 06/17/18 06/17/18 06/17/18 Range/Units 18:30 18:54 18:54 CBC w Diff WBC (4.0-11.0) th/mm3 RBC (4.50-5.90) mil/mm3 Hgb (13.0-17.0) gm/dL Hct (39.0-51.0) % MCV (80.0-100.0) fL MCH (27.0-34.0) pg MCHC (32.0-36.0) % RDW (11.6-17.2) % Plt Count (150-450) th/mm3 MPV (7.0-11.0) fL Neut % (Auto) (16.0-70.0) % Lymph % (Auto) (9.0-44.0) % [place] % (Auto) (0.0-8.0) % Eos % (Auto) (0.0-4.0) % Baso % (Auto) (0.0-2.0) % Neut # (Auto) (1.8-7.7) th/mm3 Lymph # (Auto) (1.0-4.8) th/mm3 [place] # (Auto) (0.0-0.9) th/mm3 Eos # (Auto) (0.0-0.4) th/mm3 Baso # (Auto) (0.0-0.2) th/mm3 WBC Differential Differential Comment PT (9.8-11.6) sec INR Ratio APTT (24.3-30.1) sec Sodium (136-145) meq/L Potassium (3.5-5.1) meq/L Chloride (98-107) meq/L Carbon Dioxide (21.0-32.0) meq/L Anion Gap (5-15) meq/L BUN (7-18) mg/dL Creatinine (0.60-1.30) mg/dL Estimated GFR (>89) mL/min POC Glucose (68-110) mg/dl Random Glucose (74-106) mg/dL Lactic Acid (0.4-2.0) mmol/L Calcium (8.5-10.1) mg/dL Magnesium (1.5-2.5) mg/dL Total Bilirubin (0.2-1.0) mg/dL AST (15-37) U/L ALT (12-78) U/L Alkaline Phosphatase (45-117) U/L Total Creatine Kinase (39-308) U/L Troponin I (0.02-0.05) ng/mL Total Protein (6.4-8.2) g/dL Albumin (3.4-5.0) g/dL Cortisol Less than 0.5 mcg/dL Urine Color Yellow (Yellw/Straw) Urine Clarity Clear (Clear) Urine pH 7.0 (5.0-8.5) Ur Specific [place] 1.020 (1.002-1.035) Urine Protein Negative (Neg-Trace) mg/dL Urine Glucose (UA) Negative (Negative) mg/dL Urine Ketones 80 or greater H (Negative) mg/dL Urine Occult Blood Negative (Negative) Urine Nitrate Negative (Negative) Urine Bilirubin Negative (Negative) Urine Urobilinogen 0.2 (Less than 2) mg/dL Ur Leukocyte Esterase Negative (Negative) Urine RBC 0-3 (0-3) /hpf Amorphous Sediment Few H (None) /hpf Urine Bacteria Rare H (None) /hpf Urine Mucus Few H (Occasional) /lpf Micro UA Comment Culture not ind Ur Microscopic Review Microscopic reviewed Urine Culture Comments Culture not ind Urine Opiates Screen Neg (Neg) Ur Barbiturates Screen Neg (Neg) Ur Amphetamines Screen Pos H (Neg) U Benzodiazepines Scrn Neg (Neg) Urine Cocaine Screen Pos H (Neg) U Cannabinoids Screen Pos H (Neg) 06/17/18 06/17/18 06/17/18 Range/Units 19:30 19:30 19:30 CBC w Diff Auto diff final WBC 10.0 (4.0-11.0) th/mm3 RBC 5.08 (4.50-5.90) mil/mm3 Hgb 16.0 (13.0-17.0) gm/dL Hct 46.0 (39.0-51.0) % MCV 90.5 (80.0-100.0) fL MCH 31.5 (27.0-34.0) pg MCHC 34.8 (32.0-36.0) % RDW 12.9 (11.6-17.2) % Plt Count 283 (150-450) th/mm3 MPV 7.8 (7.0-11.0) fL Neut % (Auto) 53.6 (16.0-70.0) % Lymph % (Auto) 32.2 (9.0-44.0) % [place] % (Auto) 7.6 (0.0-8.0) % Eos % (Auto) 4.0 (0.0-4.0) % Baso % (Auto) 2.6 H (0.0-2.0) % Neut # (Auto) 5.3 (1.8-7.7) th/mm3 Lymph # (Auto) 3.2 (1.0-4.8) th/mm3 [place] # (Auto) 0.8 (0.0-0.9) th/mm3 Eos # (Auto) 0.4 (0.0-0.4) th/mm3 Baso # (Auto) 0.3 H (0.0-0.2) th/mm3 WBC Differential . Differential Comment . PT 10.3 (9.8-11.6) sec INR 1.0 Ratio APTT 26.3 (24.3-30.1) sec Sodium 136 (136-145) meq/L Potassium 3.2 L (3.5-5.1) meq/L Chloride 98 (98-107) meq/L Carbon Dioxide 27.7 (21.0-32.0) meq/L Anion Gap 10 (5-15) meq/L BUN 19 H (7-18) mg/dL Creatinine 0.72 (0.60-1.30) mg/dL Estimated GFR Greater than 89 (>89) mL/min POC Glucose (68-110) mg/dl Random Glucose 56 L (74-106) mg/dL Lactic Acid (0.4-2.0) mmol/L Calcium 8.4 L (8.5-10.1) mg/dL Magnesium 2.5 (1.5-2.5) mg/dL Total Bilirubin 1.3 H (0.2-1.0) mg/dL AST 37 (15-37) U/L ALT 34 (12-78) U/L Alkaline Phosphatase 104 (45-117) U/L Total Creatine Kinase 182 (39-308) U/L Troponin I Less than 0.02 L (0.02-0.05) ng/mL Total Protein 7.3 (6.4-8.2) g/dL Albumin 4.1 (3.4-5.0) g/dL Cortisol mcg/dL Urine Color (Yellw/Straw) Urine Clarity (Clear) Urine pH (5.0-8.5) Ur Specific [place] (1.002-1.035) Urine Protein (Neg-Trace) mg/dL Urine Glucose (UA) (Negative) mg/dL Urine Ketones (Negative) mg/dL Urine Occult Blood (Negative) Urine Nitrate (Negative) Urine Bilirubin (Negative) Urine Urobilinogen (Less than 2) mg/dL Ur Leukocyte Esterase (Negative) Urine RBC (0-3) /hpf Amorphous Sediment (None) /hpf Urine Bacteria (None) /hpf Urine Mucus (Occasional) /lpf Micro UA Comment Ur Microscopic Review Urine Culture Comments Urine Opiates Screen (Neg) Ur Barbiturates Screen (Neg) Ur Amphetamines Screen (Neg) U Benzodiazepines Scrn (Neg) Urine Cocaine Screen (Neg) U Cannabinoids Screen (Neg) 06/17/18 06/17/18 06/17/18 Range/Units 19:30 22:26 23:29 CBC w Diff WBC (4.0-11.0) th/mm3 RBC (4.50-5.90) mil/mm3 Hgb (13.0-17.0) gm/dL Hct (39.0-51.0) % MCV (80.0-100.0) fL MCH (27.0-34.0) pg MCHC (32.0-36.0) % RDW (11.6-17.2) % Plt Count (150-450) th/mm3 MPV (7.0-11.0) fL Neut % (Auto) (16.0-70.0) % Lymph % (Auto) (9.0-44.0) % [place] % (Auto) (0.0-8.0) % Eos % (Auto) (0.0-4.0) % Baso % (Auto) (0.0-2.0) % Neut # (Auto) (1.8-7.7) th/mm3 Lymph # (Auto) (1.0-4.8) th/mm3 [place] # (Auto) (0.0-0.9) th/mm3 Eos # (Auto) (0.0-0.4) th/mm3 Baso # (Auto) (0.0-0.2) th/mm3 WBC Differential Differential Comment PT (9.8-11.6) sec INR Ratio APTT (24.3-30.1) sec Sodium (136-145) meq/L Potassium (3.5-5.1) meq/L Chloride (98-107) meq/L Carbon Dioxide (21.0-32.0) meq/L Anion Gap (5-15) meq/L BUN (7-18) mg/dL Creatinine (0.60-1.30) mg/dL Estimated GFR (>89) mL/min POC Glucose 71 103 (68-110) mg/dl Random Glucose (74-106) mg/dL Lactic Acid 1.1 (0.4-2.0) mmol/L Calcium (8.5-10.1) mg/dL Magnesium (1.5-2.5) mg/dL Total Bilirubin (0.2-1.0) mg/dL AST (15-37) U/L ALT (12-78) U/L Alkaline Phosphatase (45-117) U/L Total Creatine Kinase (39-308) U/L Troponin I (0.02-0.05) ng/mL Total Protein (6.4-8.2) g/dL Albumin (3.4-5.0) g/dL Cortisol mcg/dL Urine Color (Yellw/Straw) Urine Clarity (Clear) Urine pH (5.0-8.5) Ur Specific [place] (1.002-1.035) Urine Protein (Neg-Trace) mg/dL Urine Glucose (UA) (Negative) mg/dL Urine Ketones (Negative) mg/dL Urine Occult Blood (Negative) Urine Nitrate (Negative) Urine Bilirubin (Negative) Urine Urobilinogen (Less than 2) mg/dL Ur Leukocyte Esterase (Negative) Urine RBC (0-3) /hpf Amorphous Sediment (None) /hpf Urine Bacteria (None) /hpf Urine Mucus (Occasional) /lpf Micro UA Comment Ur Microscopic Review Urine Culture Comments Urine Opiates Screen (Neg) Ur Barbiturates Screen (Neg) Ur Amphetamines Screen (Neg) U Benzodiazepines Scrn (Neg) Urine Cocaine Screen (Neg) U Cannabinoids Screen (Neg) Imaging Data Radiologist's impression: Chest X-Ray 06/17/18 19:22 CONCLUSION: No acute cardiopulmonary process Head CT 06/17/18 19:22 CONCLUSION: 1. No acute intracranial abnormality.. ECG Data EKG Prior to Arrival: No Attestation: I personally reviewed and interpreted this ECG as follows: Interpretation: ECG shows normal sinus rhythm at a rate of 69, no ST elevation or depression Discharge Plan Discharge Disposition Patient Disposition: 30 Still Patient Discharge Condition Condition: Stable Discharge Details Diagnosis: Drug overdose, Altered mental status, Tunica's disease Physicians Team ED Provider: Iris Dominguez Primary Care Provider: Yandel Asencio Rxs /Orders / Referrals /Forms Prescriptions: No Action hydrocortisone 1 % Cream 1 applic TOPICAL BID RF: 0 fludrocortisone RF: 0 Discharge Interventions Interventions: Vital Signs Last Done: 06/17/18 22:12 Status ED Status: With Doctor
[2018-06-18] MEDS: KCL 20 mEq/D5W/NaCl 0.45% Inj 1,000 ML IV.CONT SCH ×2 (00:11→13:36)
[2018-06-18] MEDS ORDERED: Hydrocortisone Sod Succinate 100 MG Vial IV.PUSH SCH ×2 (06:00→07:51)
[2018-06-18 06:28] LABS: Baso % (Auto) 0.4 % (0.0-2.0); Eos % (Auto) 0.7 % (0.0-4.0); Hematocrit 46.7 % (39.0-51.0); Hemoglobin 15.7 gm/dL (13.0-17.0); Lymph # (Auto) 0.8 th/mm3 (1.0-4.8); Mean Corpuscular HGB Conc 33.5 % (32.0-36.0); Mean Corpuscular Hemoglobin 31.4 pg (27.0-34.0); Mean Corpuscular Volume 93.7 fL (80.0-100.0); Mean Platelet Volume 7.9 fL (7.0-11.0); Mono # (Auto) 0.3 th/mm3 (0.0-0.9); Neut # (Auto) 5.3 th/mm3 (1.8-7.7); Neut % (Auto) 81.9 % (16.0-70.0); Platelet Count 270 th/mm3 (150-450); Red Blood Count 4.99 mil/mm3 (4.50-5.90); Red Cell Distribution Width 12.1 % (11.6-17.2); White Blood Count 6.4 th/mm3 (4.0-11.0)
[2018-06-18 06:33] LABS: Chloride 98 meq/L (98-107); Sodium 134 meq/L (136-145)
[2018-06-18 06:38] LABS: Anion Gap 9 meq/L (5-15); Blood Urea Nitrogen 17 mg/dL (7-18); Carbon Dioxide 27.1 meq/L (21.0-32.0); Glucose,Random 101 mg/dL (74-106)
[2018-06-18 06:39] LABS: Calcium 8.5 mg/dL (8.5-10.1)
[2018-06-18 06:41] LABS: Glomerular Filtration Rate Greater Than 89 mL/min (>89)
--- NOTE | 2018-06-18 08:04 | P.HP ---
History of Present Illness Primary Care Physician: Yandel Asencio DO Chief Complaint: Altered mental status History of Present Illness: 52-year-old male who is known to the hospital because of polysubstance abuse, medication noncompliance, Pete's crisis. Patient does not know how he got to the hospital or cannot describe what happened to him prior to coming here. Information was taken from medical records and apparently the patient's was found unresponsive and brought to the hospital. Patient does have history of polysubstance abuse and is positive for amphetamines, cocaine, marijuana and the drug screen. Patient is only lying in bed and moaning. He is alert and orientated, however he is only answering minimal questions. Apparently patient was with altered mental status. Workup was performed and found to have his cortisol level less than 0.5. Patient is well-known not take his medications while he is using drugs. Patient was given Solu-Cortef 100 mg IV in the emergency department and will be continued on Solu- Cortef 50 mg IV every 8 hours. Patient does have mildly elevated blood pressure. Otherwise he is awake, alert and orientated. - Diagnosis (1) Altered mental status (2) Hinsdale's disease Review of Systems other (Patient with very minimal response to questions and is however he is alert ) Neurologic: Reports headache(s) PMFSH - History History Provided By: Family Member - Medical History Medical History: Medical History (Last Updated 06/18/18 @ 07:57 by BREANA Malik) Hinsdale disease Polysubstance abuse - Surgical History Surgical History: Surgical History (Last Updated 06/18/18 @ 07:58 by BREANA Malik) History of splenectomy History of tonsillectomy Leg fracture, right - Family History Family History: Family History (Last Updated 06/18/18 @ 07:58 by BREANA Malik) Mother Family history of hypertension - Tobacco History Second Hand Smoke Exposure: Yes Tobacco Use In Past 30 Days: Yes Smoking Status: Current every day smoker Tobacco Type: Cigarettes - Alcohol History How Often Do You Have a Drink Containing Alcohol: 2 to 4 times a month - Substance Use History Substance History: Active Abuse - Travel History Recent Travel in the [place] Within the Last 8 Weeks: No Recent Travel Out of the Country Within the Last 8 Weeks: No - Immunization History Tetanus Immunization: Unsure Medications and Allergies Active Medications: Active Medications Hydrocortisone Sodium Succinate (Solucortef Inj) 100 mg IV.PUSH Q8HR [facility] Last Admin: 06/18/18 06:14 Dose: Not Given Potassium Chloride/Dextrose/Sod Cl (D5w/1/2ns + Kcl 20 Meq Inj) 1,000 mls @ 84 mls/hr IV.CONT .[id number] [facility] Last Infusion: 06/18/18 00:49 Dose: 84 mls/hr Ondansetron HCl (Zofran Inj) 4 mg IV.PUSH Q6H PRN PRN Reason: NAUSEA OR VOMITING Sodium Chloride (Ns Flush) 2 ml IV.FLUSH PRN PRN PRN Reason: FLUSH AFTER USING IV ACCESS Allergies Allergy/AdvReac Type Severity Reaction Status Date / Time penicillin G Allergy Unknown UNKNOWN Verified 06/17/18 20:08 Exam Vital signs: Vital Signs 06/17/18 19:30 06/17/18 19:37 06/17/18 19:51 Temperature 95 F L 95 F L 97.8 F Pulse Rate 71 Respiratory Rate 8 L Blood Pressure 161/99 H Pulse Oximetry 92 L 100 06/17/18 20:12 06/17/18 20:16 06/17/18 21:26 Temperature 97.8 F 97.7 F Pulse Rate 55 L 65 Respiratory Rate 12 12 18 Blood Pressure 159/95 H Pulse Oximetry 97 99 06/17/18 22:12 06/18/18 00:14 06/18/18 00:50 Temperature 96.2 F L Pulse Rate 60 55 L 77 Respiratory Rate 18 16 20 Blood Pressure 171/99 H 154/99 H 176/97 H Pulse Oximetry 99 100 100 06/18/18 02:17 06/18/18 04:00 Temperature Pulse Rate Respiratory Rate 14 Blood Pressure Pulse Oximetry 99 Intake & Output 06/17/18 06/18/18 06/18/18 18:59 06:59 18:59 Intake Total 35 / 35 Balance 35 / 35 Weight 52.4 kg Intake: IV 35 / 35 D5W/1/2NS + KCL 20 mEq Inj 1, 35 / 35 000 ML @ 84 mls/hr IV.CONT . [id number] [facility] Rx#:[id number] Oral 0 / 0 Other: # Voids 0 Narrative: GENERAL: Well-developed, cachectic, in no acute distress. alert and orientated HEENT: Head is normocephalic without any lesions or masses noted. Facial features are symmetric with bitemporal wasting. Eyes: Pupils equal round reactive to light. Extraocular muscles are intact. Conjunctivae were clear. Oropharyngeal: Pharynx without any erythema edema. Tongue is midline without deviation. Buccal mucosa is moist without any masses or lesions NECK: Supple without any masses. Trachea midline no deviation. No JVD, no bruits are appreciated CARDIAC: Regular rhythm, regular rate. S1/S2 are heard. No murmurs gallops or rubs. LUNGS: Clear to auscultation bilaterally. No wheeze, rhonchi or rales. No use of accessory muscles on inspiration or expiration. ABDOMEN: Soft, nontender. Nondistended. Bowel sounds heard in all 4 quadrants. No organomegaly or masses. Negative rebound, negative guarding EXTREMITIES: No edema, pulses are equal bilaterally. No cyanosis or clubbing NEUROLOGY: Mood and affect appear appropriate. Cranial nerves II through XII grossly intact. Muscle strength 5/5 in upper and lower extremities bilaterally. Deep tendon reflexes are 2+ in upper and lower extremities bilaterally. Results - Labs CBC & Chem 7: 06/18/18 05:25 06/18/18 05:25 Labs: Laboratory Results - last 24 hr 06/17/18 06/17/18 06/17/18 18:30 18:54 18:54 CBC w Diff WBC RBC Hgb Hct MCV MCH MCHC RDW Plt Count MPV Neut % (Auto) Lymph % (Auto) [place] % (Auto) Eos % (Auto) Baso % (Auto) Neut # (Auto) Lymph # (Auto) [place] # (Auto) Eos # (Auto) Baso # (Auto) WBC Differential Differential Comment PT INR APTT Sodium Potassium Chloride Carbon Dioxide Anion Gap BUN Creatinine Estimated GFR POC Glucose Random Glucose Lactic Acid Calcium Magnesium Total Bilirubin AST ALT Alkaline Phosphatase Total Creatine Kinase Troponin I Total Protein Albumin Cortisol Less than 0.5 Urine Color Yellow Urine Clarity Clear Urine pH 7.0 Ur Specific [place] 1.020 Urine Protein Negative Urine Glucose (UA) Negative Urine Ketones 80 or greater H Urine Occult Blood Negative Urine Nitrate Negative Urine Bilirubin Negative Urine Urobilinogen 0.2 Ur Leukocyte Esterase Negative Urine RBC 0-3 Amorphous Sediment Few H Urine Bacteria Rare H Urine Mucus Few H Micro UA Comment Culture not ind Ur Microscopic Review Microscopic reviewed Urine Culture Comments Culture not ind Urine Opiates Screen Neg Ur Barbiturates Screen Neg Ur Amphetamines Screen Pos H U Benzodiazepines Scrn Neg Urine Cocaine Screen Pos H U Cannabinoids Screen Pos H 06/17/18 06/17/18 06/17/18 19:30 19:30 19:30 CBC w Diff Auto diff final WBC 10.0 RBC 5.08 Hgb 16.0 Hct 46.0 MCV 90.5 MCH 31.5 MCHC 34.8 RDW 12.9 Plt Count 283 MPV 7.8 Neut % (Auto) 53.6 Lymph % (Auto) 32.2 [place] % (Auto) 7.6 Eos % (Auto) 4.0 Baso % (Auto) 2.6 H Neut # (Auto) 5.3 Lymph # (Auto) 3.2 [place] # (Auto) 0.8 Eos # (Auto) 0.4 Baso # (Auto) 0.3 H WBC Differential . Differential Comment . PT 10.3 INR 1.0 APTT 26.3 Sodium 136 Potassium 3.2 L Chloride 98 Carbon Dioxide 27.7 Anion Gap 10 BUN 19 H Creatinine 0.72 Estimated GFR Greater than 89 POC Glucose Random Glucose 56 L Lactic Acid Calcium 8.4 L Magnesium 2.5 Total Bilirubin 1.3 H AST 37 ALT 34 Alkaline Phosphatase 104 Total Creatine Kinase 182 Troponin I Less than 0.02 L Total Protein 7.3 Albumin 4.1 Cortisol Urine Color Urine Clarity Urine pH Ur Specific [place] Urine Protein Urine Glucose (UA) Urine Ketones Urine Occult Blood Urine Nitrate Urine Bilirubin Urine Urobilinogen Ur Leukocyte Esterase Urine RBC Amorphous Sediment Urine Bacteria Urine Mucus Micro UA Comment Ur Microscopic Review Urine Culture Comments Urine Opiates Screen Ur Barbiturates Screen Ur Amphetamines Screen U Benzodiazepines Scrn Urine Cocaine Screen U Cannabinoids Screen 06/17/18 06/17/18 06/17/18 19:30 22:26 23:29 CBC w Diff WBC RBC Hgb Hct MCV MCH MCHC RDW Plt Count MPV Neut % (Auto) Lymph % (Auto) [place] % (Auto) Eos % (Auto) Baso % (Auto) Neut # (Auto) Lymph # (Auto) [place] # (Auto) Eos # (Auto) Baso # (Auto) WBC Differential Differential Comment PT INR APTT Sodium Potassium Chloride Carbon Dioxide Anion Gap BUN Creatinine Estimated GFR POC Glucose 71 103 Random Glucose Lactic Acid 1.1 Calcium Magnesium Total Bilirubin AST ALT Alkaline Phosphatase Total Creatine Kinase Troponin I Total Protein Albumin Cortisol Urine Color Urine Clarity Urine pH Ur Specific [place] Urine Protein Urine Glucose (UA) Urine Ketones Urine Occult Blood Urine Nitrate Urine Bilirubin Urine Urobilinogen Ur Leukocyte Esterase Urine RBC Amorphous Sediment Urine Bacteria Urine Mucus Micro UA Comment Ur Microscopic Review Urine Culture Comments Urine Opiates Screen Ur Barbiturates Screen Ur Amphetamines Screen U Benzodiazepines Scrn Urine Cocaine Screen U Cannabinoids Screen 06/18/18 06/18/18 06/18/18 05:25 05:25 07:44 CBC w Diff Auto diff final WBC 6.4 RBC 4.99 Hgb 15.7 Hct 46.7 MCV 93.7 MCH 31.4 MCHC 33.5 RDW 12.1 Plt Count 270 MPV 7.9 Neut % (Auto) 81.9 H Lymph % (Auto) 13.0 [place] % (Auto) 4.0 Eos % (Auto) 0.7 Baso % (Auto) 0.4 Neut # (Auto) 5.3 Lymph # (Auto) 0.8 L [place] # (Auto) 0.3 Eos # (Auto) 0.0 Baso # (Auto) 0.0 WBC Differential . Differential Comment . PT INR APTT Sodium 134 L Potassium 4.0 D Chloride 98 Carbon Dioxide 27.1 Anion Gap 9 BUN 17 Creatinine 0.74 Estimated GFR Greater than 89 POC Glucose 109 Random Glucose 101 Lactic Acid Calcium 8.5 Magnesium Total Bilirubin AST ALT Alkaline Phosphatase Total Creatine Kinase Troponin I Total Protein Albumin Cortisol Urine Color Urine Clarity Urine pH Ur Specific [place] Urine Protein Urine Glucose (UA) Urine Ketones Urine Occult Blood Urine Nitrate Urine Bilirubin Urine Urobilinogen Ur Leukocyte Esterase Urine RBC Amorphous Sediment Urine Bacteria Urine Mucus Micro UA Comment Ur Microscopic Review Urine Culture Comments Urine Opiates Screen Ur Barbiturates Screen Ur Amphetamines Screen U Benzodiazepines Scrn Urine Cocaine Screen U Cannabinoids Screen - Imaging Impressions Chest X-Ray 06/17/18 19:22 CONCLUSION: No acute cardiopulmonary process Head CT 06/17/18 19:22 CONCLUSION: 1. No acute intracranial abnormality.. Caprini VTE Risk Assessment Caprini VTE Risk Assessment: No/Low Risk (score <= 1) Caprini Risk Assessment Model: Point Value = 1 Point Value = 2 Point Value = 3 Point Value = 5 Age 41-60 Minor surgery BMI > 25 kg/m2 Swollen legs Varicose veins or History of unexplained or recurrent spontaneous Oral contraceptives or hormone replacement Sepsis (< 1 month) Serious lung disease, including pneumonia (< 1 month) Abnormal pulmonary function Acute myocardial infarction Congestive heart failure (< 1 month) History of inflammatory bowel disease Medical patient at bed rest Age 61-74 Arthroscopic surgery Major open surgery (> 45 min) Laparoscopic surgery (> 45 min) Malignancy Confined to bed (> 72 hours) Immobilizing plaster cast Central venous access Age >= 75 History of VTE Family history of VTE Factor V Leiden Prothrombin [id number] Lupus anticoagulant Anticardiolipin antibodies Elevated serum homocysteine Heparin-induced thrombocytopenia Other congenital or acquired thrombophilia Stroke (< 1 month) Elective arthroplasty Hip, pelvis, or leg fracture Acute spinal cord injury (< 1 month) Prophylaxis Regimen: Total Risk Factor Score Risk Level Prophylaxis Regimen 0-1 Low Early ambulation 2 Moderate Order ONE of the following: *Sequential Compression Device (SCD) *Heparin 5000 units SQ BID 3-4 Higher Order ONE of the following medications: *Heparin 5000 units SQ TID *Enoxaparin/Lovenox 40 mg SQ daily (WT < 150 kg, CrCl > 30 mL/min) *Enoxaparin/Lovenox 30 mg SQ daily (WT < 150 kg, CrCl > 10-29 mL/min) *Enoxaparin/Lovenox 30 mg SQ BID (WT < 150 kg, CrCl > 30 mL/min) AND/OR *Sequential Compression Device (SCD) 5 or more Highest Order ONE of the following medications: *Heparin 5000 units SQ TID (Preferred with Epidurals) *Enoxaparin/Lovenox 40 mg SQ daily (WT < 150 kg, CrCl > 30 mL/min) *Enoxaparin/Lovenox 30 mg SQ daily (WT < 150 kg, CrCl > 10-29 mL/min) *Enoxaparin/Lovenox 30 mg SQ BID (WT < 150 kg, CrCl > 30 mL/min) AND *Sequential Compression Device (SCD) Assessment and Plan - Assessment (1) Altered mental status Code(s): R41.82 - Altered mental status, unspecified Status: Acute (2) Hinsdale's disease Code(s): E27.1 - Primary adrenocortical insufficiency Status: Acute - Plan Pete's disease -Patient with recurrent hospitalizations due to noncompliance with medication during his drug binges, who presented with altered mental status -Initial cortisol level was less than 0.5 -Patient given Solu-Cortef 100 mg IV in the emergency department, -Patient was resumed on home medications of hydrocortisone 15 mg p.o. daily -Continued oral hydrocortisone -patient is tolerating diet and oral medications Polysubstance abuse -Possible drug overdose/overuse with patient presenting with altered mental status -Monitor for any withdrawals -Patient counseled on cessation Elevated blood pressure -Multifactorial with patient having noncompliant treatment with Pete's, polysubstance abuse -Continue monitor blood pressure -Clonidine as needed DVT prevention -Low risk, early ambulation Discharge Planning: Discharge home in stable condition Activity: Ad adeline. Diet: Regular diet Medication per medication reconciliation Follow-up with primary medical doctor in 1 week (1) Altered mental status Qualifiers: Altered mental status type: unspecified Qualified Code(s): R41.82 - Altered mental status, unspecified
[2018-06-18] MEDS ORDERED: Hydrocortisone 10 MG Tablet PO SCH (10:30)
[2018-06-18] MEDS ORDERED: Acetaminophen 325 MG Tablet PO PRN (13:42)
--- NOTE | 2018-06-20 01:45 | ECG ---
Date Performed: 06/17/2018 Time Performed: 19:45:51 PTAGE: 52 years EKG: Sinus rhythm POSSIBLE LEFT ATRIAL ENLARGEMENT POSSIBLE LEFT VENTRICULAR HYPERTROPHY PROLONGED QT INTERVAL ABNORMA L ECG PREVIOUS TRACING : 02/03/2018 10.32 Since the previous tracing, no significant change noted DOCTOR: Olvin Austin Interpretating Date/Time 06/20/2018 01:44:26
== END 2018-06-18 18:07 | disposition home or self-care (01) ==
LOC: PHED 19:03 → INTOOBSV 23:52 → PHEDA 23:52 → PH3 06-18 00:45
PROVIDERS: ADMIT Internal Medicine; ATTEND Internal Medicine